=== PATIENT | male | born 1985 | race Caucasian/White ===

== ENCOUNTER → 2018-08-08 | Outpatient (CLI) | payer SELFPAY ==
[~2018-08-08] MED LIST: CELE20TA OR; TRAZ50TA OR
[2018-08-08 18:03] LABS: CHOLESTEROL RISK RATIO 6.333 (<5)
== END ==
LOC: M WUC 16:11
PROVIDERS: ATTEND Physician Assistant
DX: Z00.00 Encounter for general adult medical examination without abnormal findings (principal)